=== PATIENT | female | born 1965 | race Caucasian/White ===

== ENCOUNTER → 2018-05-23 | Outpatient (CLI) | payer MEDICARE, MEDICAID ==
--- NOTE | 2018-05-23 21:44 | RAD ---
EXAM: Pelvic sonogram. HISTORY: Dermoid cyst. Pain. TECHNIQUE: Transabdominal and transvaginal sonographic imaging of the pelvis was performed. COMPARISON: None. FINDINGS: The uterus measures 6.9 x 4.0 x 2.1 cm. The endometrial stripe measures less than 2 mm in thickness. The right ovary measures 1.7 x 1.5 x 1.1 cm. Left ovary measures 1.0 x 1.3 x 0.9 cm. There is normal blood flow within both ovaries. There is no pelvic free fluid. IMPRESSION: 1. No sonographic evidence of a dermoid cyst. The ovaries are sonographically unremarkable on this exam. 2. Thin endometrial stripe, consistent with the postmenopausal status of patient. Electronically signed by: Suyapa Saha MD (05/23/2018 9:40 PM) [facility]
== END | disposition home or self-care (01) ==
LOC: US 14:11
DX: R10.2 Pelvic and perineal pain (principal)
CPT/HCPCS: 76830; 76856